=== PATIENT | male | born 1950 | race Hispanic/Latino ===

== ENCOUNTER 2018-05-14 08:25 | Day surgery (SDC) | payer MEDICARE ==
[~2018-05-14] VITALS: Ht 170.2 cm; Wt 70.1 kg
[~2018-05-14 08:25] MED LIST: BETA1TAB20 PO; BUDE10.2 IH; CARB15DR OU; CLOP75TA32 PO; LISI10TA7 PO; METF-444 PO; PROP20TA7 PO; SIMV40TA5 PO; SODIUM CHLORIDE 0.9% 1000ML 1,000 ML IV ONE; SPIR50TA5 PO
[2018-05-14 09:31] VITALS: BP 103/64
[2018-05-14 12:03] VITALS: BP 95/50
[2018-05-14 12:08] VITALS: BP 97/55
[2018-05-14 12:14] VITALS: BP 96/61
[2018-05-14 12:26] VITALS: BP 105/60
[2018-05-14 12:33] VITALS: BP 125/76
== END 2018-05-14 12:52 | disposition home or self-care (01) ==
LOC: DAH 08:25
PROVIDERS: ATTEND Internal Medicine
DX: I85.00 Esophageal varices without bleeding (principal); K80.20 Calculus of gallbladder without cholecystitis without obstruction; K86.9 Disease of pancreas, unspecified; K31.89 Other diseases of stomach and duodenum; I12.9 Hypertensive chronic kidney disease with stage 1 through stage 4 chronic kidney disease, or unspecified chronic kidney disease; E11.22 Type 2 diabetes mellitus with diabetic chronic kidney disease; N18.9 Chronic kidney disease, unspecified; I25.10 Atherosclerotic heart disease of native coronary artery without angina pectoris; E78.00 Pure hypercholesterolemia, unspecified; Z86.73 Personal history of transient ischemic attack (TIA), and cerebral infarction without residual deficits; N40.0 Benign prostatic hyperplasia without lower urinary tract symptoms; J45.909 Unspecified asthma, uncomplicated; F32.9 Major depressive disorder, single episode, unspecified; F41.9 Anxiety disorder, unspecified; K70.31 Alcoholic cirrhosis of liver with ascites; Z95.5 Presence of coronary angioplasty implant and graft; Z79.899 Other long term (current) drug therapy; K29.50 Unspecified chronic gastritis without bleeding; Z80.0 Family history of malignant neoplasm of digestive organs
CPT/HCPCS: 43237; 82948 ×2; 93005; A4606; J7030; 43231

== ENCOUNTER 2018-12-14 07:44 | Day surgery (SDC) | payer MEDICARE, OTHER ==
[~2018-12-14] VITALS: Ht 167.6 cm; Wt 72.6 kg
[2018-12-14 09:27] VITALS: BP 117/58
[2018-12-14] MEDS ORDERED: PROPOFOL 10 MG/ML 20ML VIAL IV ONE (11:23)
[2018-12-14 11:39] VITALS: BP 132/50
[2018-12-14 11:44] VITALS: BP 114/53
[2018-12-14 11:54] VITALS: BP 123/68
[2018-12-14 11:57] VITALS: BP 142/67
[2018-12-14 12:10] VITALS: BP_SYST 128; BP_SYST 142; BP_DIAS 61; BP_DIAS 67
--- NOTE | 2018-12-14 12:15 | NUR ---
DISCHARGE INSTRUCTED NIECE AND PT ON CLEAR LIQUID DIET ORDERS GIVEN DR. FIGUEROA. THEN ADVANCE TO SOFT FOODS THEN TO REGULAR DIET. BOTH VERBALIZED UNDERSTANDING,.
== END 2018-12-14 12:15 | disposition home or self-care (01) ==
LOC: DAH 07:44 → ENDO 07:44
PROVIDERS: ATTEND Internal Medicine
DX: I85.10 Secondary esophageal varices without bleeding (principal); K31.89 Other diseases of stomach and duodenum; I10 Essential (primary) hypertension; E78.00 Pure hypercholesterolemia, unspecified; E11.9 Type 2 diabetes mellitus without complications; I25.10 Atherosclerotic heart disease of native coronary artery without angina pectoris; J45.909 Unspecified asthma, uncomplicated; F41.9 Anxiety disorder, unspecified; F32.9 Major depressive disorder, single episode, unspecified; Z86.73 Personal history of transient ischemic attack (TIA), and cerebral infarction without residual deficits; Z79.84 Long term (current) use of oral hypoglycemic drugs; Z79.4 Long term (current) use of insulin; K29.50 Unspecified chronic gastritis without bleeding; K74.60 Unspecified cirrhosis of liver
CPT/HCPCS: 43239; 43244; 82948 ×2; 88305; 93005; A4606; J2704; J7030

== ENCOUNTER 2019-01-28 08:25 | Day surgery (SDC) | payer OTHER ==
[2019-01-28] VITALS (8 sets, daily range): BP systolic 94–122; BP diastolic 54–73
[~2019-01-28] VITALS: Ht 167.6 cm; Wt 67.6 kg
[~2019-01-28 08:25] MED LIST changes: -CLOP75TA32 PO
[2019-01-28] MEDS ORDERED: PROP20TA7 PO (09:03)
[2019-01-28] MEDS ORDERED: OMEP40CA37 PO (09:03)
[2019-01-28] MEDS ORDERED: ASPI-1197 PO (09:04)
[2019-01-28] MEDS ORDERED: CLOP75TA14 PO (09:52)
[2019-01-28] MEDS ORDERED: CARAL PO (09:54)
[2019-01-28] MEDS ORDERED: LACT10SO8 PO (09:54)
[2019-01-28] MEDS ORDERED: PROPOFOL 10 MG/ML 20ML VIAL IV ONE (11:22)
== END 2019-01-28 12:15 | disposition home or self-care (01) ==
LOC: ENDO 08:25 → DAH 08:25 → ENDO 12:15
PROVIDERS: ATTEND Internal Medicine
DX: I85.00 Esophageal varices without bleeding (principal); K76.6 Portal hypertension; K31.89 Other diseases of stomach and duodenum; I10 Essential (primary) hypertension; E78.00 Pure hypercholesterolemia, unspecified; E11.9 Type 2 diabetes mellitus without complications; J45.909 Unspecified asthma, uncomplicated; I25.10 Atherosclerotic heart disease of native coronary artery without angina pectoris; F41.9 Anxiety disorder, unspecified; N40.0 Benign prostatic hyperplasia without lower urinary tract symptoms; F10.21 Alcohol dependence, in remission; Z79.84 Long term (current) use of oral hypoglycemic drugs; Z79.899 Other long term (current) drug therapy; Z86.73 Personal history of transient ischemic attack (TIA), and cerebral infarction without residual deficits; Z98.890 Other specified postprocedural states; Z80.0 Family history of malignant neoplasm of digestive organs
CPT/HCPCS: 43244; 82948 ×2; A4606; J2704; J7030; 43239

== ENCOUNTER 2023-12-22 06:36 | Day surgery (SDC) | payer OTHER ==
[~2023-12-22] VITALS: Ht 167.6 cm; Wt 59.0 kg
[~2023-12-22 06:36] MED LIST changes: -BETA1TAB20 PO; -BUDE10.2 IH; +CYAN-52 PO; +FERR-82 PO; +FOLI1 PO; +FURO40TA7 PO; +LACT PO; -LISI10TA7 PO; +MELA5CAP PO; -METF-444 PO; +MIDO10TA PO; +Midodrine Hcl PO; +ONDA22I IM; +PANT40TA54 PO; +PROP10TA72 PO; -PROP20TA7 PO; +RIFA550T PO; -SIMV40TA5 PO; -SODIUM CHLORIDE 0.9% 1000ML 1,000 ML IV ONE; +SPIR25TA6 PO; -SPIR50TA5 PO; +SUCR1ORA15 PO; +TAMS-1 PO; +TRAZ-185 PO
[2023-12-22 07:22] VITALS: BP 146/64; PULSE 58; RESP 18
[2023-12-22] MEDS: 0.9%NACL 1000ML 1,000 ML IV ONE (07:56)
[2023-12-22] MEDS ORDERED: TAMS-1 PO (08:10)
== END 2023-12-22 09:30 | disposition home or self-care (01) ==
LOC: ENDO 06:36 → DAH 06:36 → ENDO 09:30
PROVIDERS: ATTEND Internal Medicine Gastroenterology
DX: K70.31 Alcoholic cirrhosis of liver with ascites (principal); Z53.8 Procedure and treatment not carried out for other reasons; I85.10 Secondary esophageal varices without bleeding; I11.9 Hypertensive heart disease without heart failure; E78.00 Pure hypercholesterolemia, unspecified; E11.9 Type 2 diabetes mellitus without complications; J45.909 Unspecified asthma, uncomplicated; F41.9 Anxiety disorder, unspecified; F32.A Depression, unspecified; Z86.010 Personal history of colon polyps; Z86.73 Personal history of transient ischemic attack (TIA), and cerebral infarction without residual deficits; Z82.3 Family history of stroke; Z82.49 Family history of ischemic heart disease and other diseases of the circulatory system; Z83.3 Family history of diabetes mellitus; Z79.899 Other long term (current) drug therapy; Z95.5 Presence of coronary angioplasty implant and graft
CPT/HCPCS: 82948; J7030

== ENCOUNTER 2024-01-13 07:27 | Day surgery (SDC) | payer OTHER ==
[2024-01-13] VITALS (13 sets, daily range): BP systolic 95–142; BP diastolic 39–68; PULSE 51–58; RESP 11–18
[~2024-01-13] VITALS: Ht 167.6 cm; Wt 59.9 kg
[~2024-01-13 07:27] MED LIST changes: -CARB15DR OU; -CYAN-52 PO; -MELA5CAP PO; -Midodrine Hcl PO; -ONDA22I IM; -RIFA550T PO; -TRAZ-185 PO
[2024-01-13] MEDS: 0.9%NACL 1000ML 1,000 ML IV ONE (08:54)
[2024-01-13] MEDS ORDERED: PROPOFOL 10 MG/ML 20ML VIAL IV ONE (10:31)
== END 2024-01-13 12:15 | disposition home or self-care (01) ==
LOC: DAH 07:27
PROVIDERS: ATTEND Internal Medicine Gastroenterology
DX: K70.31 Alcoholic cirrhosis of liver with ascites (principal); I85.10 Secondary esophageal varices without bleeding; K22.10 Ulcer of esophagus without bleeding; K76.6 Portal hypertension; K31.89 Other diseases of stomach and duodenum; K22.89 Other specified disease of esophagus; I10 Essential (primary) hypertension; E11.9 Type 2 diabetes mellitus without complications; G45.9 Transient cerebral ischemic attack, unspecified; E78.00 Pure hypercholesterolemia, unspecified; N40.0 Benign prostatic hyperplasia without lower urinary tract symptoms; R93.2 Abnormal findings on diagnostic imaging of liver and biliary tract; K57.30 Diverticulosis of large intestine without perforation or abscess without bleeding; D12.6 Benign neoplasm of colon, unspecified; K80.20 Calculus of gallbladder without cholecystitis without obstruction; Z87.891 Personal history of nicotine dependence; Z79.899 Other long term (current) drug therapy; Z98.890 Other specified postprocedural states
CPT/HCPCS: 43244; 82948; J7030 ×2; J2704; A4620; A4215; A4223; A7002; A4222; A4221; A4663; A4606; J3490